=== PATIENT | male | born 2000 | race Caucasian/White ===

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

== ENCOUNTER 2022-03-25 09:13 | Emergency (ER) | payer OTHER ==
[~2022-03-25] VITALS: Ht 182.9 cm; Wt 113.4 kg
[~2022-03-25 09:13] MED LIST changes: +BENZ200C4 PO; +METH4TAB1 PO
[2022-03-25 09:17] VITALS: BP 141/90
--- NOTE | 2022-03-25 09:29 | NUR ---
PT SWABBED FOR COVID AND FLU AND SENT TO LAB
[2022-03-25] MEDS ORDERED: PRED20TA5 PO (10:47)
[2022-03-25] MEDS ORDERED: ALBU0.0912 IH (10:47)
[2022-03-25] MEDS ORDERED: NAPR-1704 PO (10:47)
--- NOTE | 2022-03-25 10:58 | NUR ---
Pt bibs for cough and blood stinged sputum today. Pt denies any other abnormalities (n/v/d). Cough is mildly productive, infrequent, weak. Pt is a/o x 4, vss, no ss of acute distress, breathing equal and unlabored, speech clear. has seen pt.
--- NOTE | 2022-03-25 11:04 | NUR ---
MD spoke with pt and then gave order for dc. ACI/Px given and reviewed with pt. Pt verbalized understanding and will follow up with primary. Pt a/o x 4, vss, no ss of acute distress, breathing equal and unlabored, speech clear, steady gait witnessed.
[2022-03-25 11:09] VITALS: BP 151/88
[2022-03-25] MEDS ORDERED: LIDOCAINE MPF 1% 10 ML ONE (14:19)
[2022-03-29] MEDS ORDERED: LIDOCAINE 1% 500 MG/ 50 ML VIAL INJ ONE (14:45)
== END 2022-03-25 11:15 | disposition home or self-care (01) ==
LOC: MED 09:13
DX: B34.9 Viral infection, unspecified (principal); Z20.822 Contact with and (suspected) exposure to COVID-19; J45.909 Unspecified asthma, uncomplicated; F12.90 Cannabis use, unspecified, uncomplicated; Z79.899 Other long term (current) drug therapy; Z79.1 Long term (current) use of non-steroidal anti-inflammatories (NSAID); Z88.2 Allergy status to sulfonamides
CPT/HCPCS: 71045; 87426; 87804; 99284; J2001

== ENCOUNTER 2022-05-21 03:17 | Emergency (ER) | payer OTHER ==
[~2022-05-21] VITALS: Ht 182.9 cm; Wt 122.5 kg
[~2022-05-21 03:17] MED LIST changes: +ALBU0.0912 IH; +NAPR-1704 PO; +PRED20TA5 PO
[2022-05-21 03:22] VITALS: BP 157/73
--- NOTE | 2022-05-21 03:26 | NUR ---
pt in process of EKG
[2022-05-21] MEDS ORDERED: FAMOTIDINE 20 MG TAB PO ONE (03:45)
[2022-05-21] MEDS ORDERED: ALUMINUM HYD/MAG/SIMETHICONE 30 ML UDC PO ONE (03:45)
--- NOTE | 2022-05-21 03:57 | NUR ---
pt to bed 9
--- NOTE | 2022-05-21 04:00 | NUR ---
MD Clemente at bedside examining pt.
--- NOTE | 2022-05-21 04:30 | NUR ---
Pt medicated as ordered; tolerated well.
[2022-05-21] MEDS ORDERED: ACETAMINOPHEN EXTRA STRENGTH 500 MG TAB PO ONE (04:45)
[2022-05-21] MEDS ORDERED: IBUPROFEN 600 MG TAB PO ONE (04:45)
[2022-05-21] MEDS ORDERED: FAMO-90 PO (05:47)
[2022-05-21] MEDS ORDERED: ACET-10509 PO (05:47)
[2022-05-21 05:52] VITALS: BP 138/76
--- NOTE | 2022-05-21 05:52 | NUR ---
Patient discharged with v/s stable. Written and verbal after care instructions given and explained. Patient alert, oriented and verbalized understanding of instructions. Ambulatory with steady gait. All questions addressed prior to discharge. ID band removed. Patient advised to follow up with PMD. Rx of Tylenol and Pepcid given. Patient educated on indication of medication including possible reaction and side effects. Opportunity to ask questions provided and answered.
== END 2022-05-21 05:52 | disposition home or self-care (01) ==
LOC: MED 03:17
DX: K21.9 Gastro-esophageal reflux disease without esophagitis (principal); J45.909 Unspecified asthma, uncomplicated; Z79.899 Other long term (current) drug therapy
CPT/HCPCS: 71045; 93005; 99283; 99284